=== PATIENT | male | born 1980 | race African-American/Black ===

== ENCOUNTER 2017-04-10 21:14 | Emergency (ER) | payer SELFPAY ==
[~2017-04-10] VITALS: Ht 180.3 cm; Wt 67.8 kg
[~2017-04-10 21:14] MED LIST: ZOFRAN ODT4 MG PO
[2017-04-10 22:15] LABS: HEMATOCRIT 42.9 % (38.0-50.0); MCH 30.5 PG (29.0-34.0); MCHC 34.7 G/DL (30.0-36.0); MCV 87.9 FL (86-99); MEAN PLAT.VOLUME 9.9 uM^3 (9.0-12.4); PLATELET COUNT 215 K/uL (156-360); RBC DIS.WIDTH-CV 13.6 % (11.8-14.6); RBC DIS.WIDTH-SD 43.9 % (39-53); RED BLOOD COUNT 4.88 M/uL (4.00-5.50); WHITE BLOOD COUNT 9.2 K/uL (4.1-10.2)
[2017-04-10 22:30] LABS: CHLORIDE 103 mEq/L (99-109); POTASSIUM 3.7 mEq/L (3.7-5.4); SODIUM 138 mEq/L (136-147)
[2017-04-10 22:32] LABS: GLUCOSE 122 mg/dL (70-99)
[2017-04-10 22:33] LABS: ANION GAP 15 MEQ/L (2-14)
[2017-04-10 22:34] LABS: TOTAL BILIRUBIN 0.6 mg/dL (0.0-1.0)
[2017-04-10 22:35] LABS: ALKALINE PHOSPHATASE 81 IU/L (3-129)
[2017-04-10 22:36] LABS: GFR ESTIMATE (CALCULATED) > 59 mL/min/ (58.99-99999)
[2017-04-10 22:37] LABS: UREA NITROGEN (BUN) 16 mg/dL (9-23)
[2017-04-10 22:59] LABS: LIPASE 43 U/L (1.0-51.0)
[2017-04-11 00:30] VITALS: BP 123/65
== END 2017-04-11 00:32 | disposition home or self-care (01) ==
LOC: EME 21:14 → EXP 21:14
DX: R10.9 Unspecified abdominal pain (principal); R11.2 Nausea with vomiting, unspecified; R19.7 Diarrhea, unspecified; R42 Dizziness and giddiness; R50.9 Fever, unspecified; F17.200 Nicotine dependence, unspecified, uncomplicated
CPT/HCPCS: 74177; 80053; 81003; 83690; 85027; 87502; 99281; 99285; J2270; J2405; J7030